=== PATIENT | male | born 1990 | race Caucasian/White ===

== ENCOUNTER 2022-09-15 19:39 | Emergency (ER) | payer OTHER, SELFPAY ==
[2022-09-15 19:47] VITALS: BP 116/80; PULSE 80; RESP 16; TEMP 36.4; O2SAT 98; BMI 21.4
--- NOTE | 2022-09-15 21:03 | CTR_ITS ---
PROCEDURE INFORMATION: Exam: CT Head Without Contrast Exam date and time: 09/15/2022 9:13 PM Age: 32 years old Clinical indication: Pain; Headache; Patient HX: [place] with fever; Additional info: Headache, chills TECHNIQUE: Imaging protocol: Computed tomography of the head without contrast. Radiation optimization: All CT scans at this facility use at least one of these dose optimization techniques: automated exposure control; mA and/or kV adjustment per patient size (includes targeted exams where dose is matched to clinical indication); or iterative reconstruction. REPORTING DATA: Count of CT and Cardiac NM exams in prior 12 months: This patient has received 0 known CTs and 0 known cardiac nuclear medicine studies in the 12 months prior to the current study. COMPARISON: No relevant prior studies available. RADIATION DOSE METRICS: Total DLP (mGy-cm): 984.48 FINDINGS: Brain: Normal. No hemorrhage. Unremarkable white matter. No mass effect. Cerebral ventricles: No ventriculomegaly. Paranasal sinuses: Visualized sinuses are unremarkable. No fluid levels. Mastoid air cells: Visualized mastoid air cells are well aerated. Bones/joints: No acute findings. Soft tissues: Unremarkable. CT/CT head wo con* [id number] IMPRESSION: No acute intracranial abnormality.
[2022-09-15 21:29] VITALS: BP 118/69; PULSE 77; RESP 16; O2SAT 98
[2022-09-15 21:33] VITALS: RESP 16
[2022-09-15] MEDS: morphine 4 mg/mL SDV 1 mL IVP (21:33)
[2022-09-15] MEDS: metoclopramide 5 mg/mL SDV 2 mL 10 MG IVP (21:33)
[2022-09-15] MEDS: ketorolac 30 mg/mL INJ IVP (21:33)
[2022-09-15] MEDS: sodium chloride 0.9% 1,000 ML 999 ML IV (21:34)
[2022-09-15 21:38] VITALS: BP 117/62; PULSE 74; RESP 16; O2SAT 99
[2022-09-15 21:40] LABS: Basophils % 0.2 %; Eosinophils # 0.1 10^3/uL (0.0-0.8); Eosinophils % 0.7 %; Hematocrit 43.6 % (42.0-52.0); Hemoglobin 15.3 g/dL (11.7-16.6); Lymphocytes # 1.8 10^3/uL (0.8-4.8); Lymphocytes % 15.4 %; Mean Corpuscular HGB Conc 35.1 g/dL (30.0-36.0); Mean Corpuscular Hemoglobin 29.2 pg (28.0-34.0); Mean Corpuscular Volume 83.2 fl (80-94); Mean Platelet Volume 9.2 fL (7.4-10.4); Monocytes # 0.7 10^3/uL (0.2-0.9); Monocytes % 6.3 %; Neutrophils # 8.89 10^3/uL (1.8-7.7); Neutrophils % 77.1 %; Nucleated Red Blood Cells % 0 %; Platelet Count 249 10^3/cmm (130-400); Red Blood Count 5.24 10^6/uL (4.1-5.3); Red Cell Distribution Width 12.1 % (12.1-15.1); White Blood Count 11.5 10^3/uL (4.0-10.0)
[2022-09-15 21:56] LABS: Alanine Aminotransferase 13 U/L (0-41); Albumin Level 4.3 g/dL (3.5-5.2); Alkaline Phosphatase 58 U/L (40-130); Blood Urea Nitrogen 12 mg/dL (6-20); Calcium 8.9 mg/dL (8.5-10.5); Carbon Dioxide 29 mmol/L (22-29); Chloride 101 mmol/L (98-107); Globulin 2.5 g/dL (1.3-4.6); Glomerular Filtration Rate 110.7 mL/min (90-130); Glucose 97 mg/dL (65-115); Osmolality Calculated 288 mOsm/kg (285-295); Sodium 139 mmol/L (136-145); Total Bilirubin 0.8 mg/dL (0.15-1.2); Total Protein 6.8 g/dL (6.6-8.7)
[2022-09-15 22:33] LABS: Anion Gap 12.9 (5-19); Aspartate Amino Transferase 22 U/L (0-40); Potassium 3.9 mmol/L (3.5-5.1)
[2022-09-15 23:12] VITALS: BP 107/62; PULSE 95; RESP 16; O2SAT 96
--- NOTE | 2022-09-16 15:53 | ED_ITS ---
HPI - Headache General: Chief Complaint: Headache Stated Complaint: sick Time Seen by Provider: 09/15/22 21:02 Source: patient and family History of Present Illness: 32 year old gentleman with a distant history of migraine. He presents with significant headache that has not responded to medication at home. He has several tick bites, although none of which have caused a significant rash. There was some concern over tick fever. He has not had fever. MD elicited complaint: headache Pertinent past history: migraines Onset (ago): hour(s) Onset description: gradually Location: frontal and temporal Severity: severe Quality & Timing: constant Exacerbating factors: light and noise Relieving factors: nothing Context: known CO exposure, tick bite and other Associated symptoms: Reports nausea; Deny chest pain, confusion, cough, eye pain, fever(s), lightheadedness, rash or vomiting Treatments prior to arrival: ibuprofen Review of Systems Const: Denies: fever(s) Eyes: Denies: change in vision, blurry vision or blind spots ENMT: Denies: throat pain Card: Denies: chest pain or lightheadedness Resp: Denies: dyspnea, productive cough or non-productive cough GI: Reports: nausea; Denies: abdominal pain or vomiting Musc: Denies: back pain Skin/Breast: Denies: rash Neuro: Reports: headache(s); Denies: weakness in extremities or confusion Physical Exam Const: COMMON NORMALS: no acute distress and patient oriented x3 GENERAL APPEARANCE: cooperative; not ill appearing and not frail appearing HENMT: COMMON NORMALS: normocephalic, atraumatic and Normal external nose present HEAD & SCALP: normocephalic and atraumatic FACE & SINUS: normal facial exam and face symmetric NOSE: Normal external nose present Eye: COMMON NORMALS: Equal, round and reactive pupils present and EOMs intact bilaterally PUPIL: Yes Equal, round and reactive pupils present Neck/C-Spine: GENERAL: Yes trachea midline Chest: CHEST: Yes Symmetrical chest wall rise Resp: COMMON NORMALS: normal respiratory effort, No retractions, No use of accessory muscles and clear to auscultation bilaterally AUSCULTATION: clear to auscultation bilaterally Cardio: COMMON NORMALS: regular rate and regular rhythm RATE: regular rate RHYTHM: regular rhythm GI: COMMON NORMALS: Normal to inspection, nondistended, normoactive bowel sounds present Extremity: COMMON NORMALS: no pedal edema Neuro: ALLAN COMA SCALE: document GCS findings [place] coma scale eye opening: Spontaneous [place] coma scale verbal response: Orientated Allan coma scale motor response: Obey commands Allan coma scale total score: 15 COMMON NORMALS: patient oriented x3 CRANIAL NERVES: Yes CN normal except as noted SPEECH: speech normal SENSORY EXAM: Yes extremities (intact) MOTOR EXAM: Normal motor muscle tone present throughout Psych: COMMON NORMALS: speech normal SPEECH: Yes normal speech Skin: COMMON NORMALS: no rashes or lesions noted GENERAL SKIN EXAM: no rashes or lesions noted Course Vital Signs: Vital signs: Vital Signs Temperature 97.5 F L 09/15/22 19:47 Pulse Rate 95 09/15/22 23:12 Respiratory Rate 16 09/15/22 23:12 Blood Pressure 107/62 09/15/22 23:12 Pulse Oximetry 96 09/15/22 23:12 Oxygen Delivery Me thod Nasal Cannula 09/15/22 21:29 MDM - Headache Medical Decision Making Responded well to oxygen, medication and fluid in the ER. White blood cell count is 11.5 without left shift. His CRP is three. Laboratory otherwise not remarkable. Head CT is non acute. No evidence of tick fever. More likely cluster headache versus migraine. With improvement, he'll be allowed home. Lab Data 09/15/22 21:34 09/15/22 21:[address] 09/15/22 21:03 IMPRESSION: No acute intracranial abnormality. Laboratory Results WBC 11.5 10^3/uL (4.0-10.0) H 09/15/22 21:34 RBC 5.24 10^6/uL (4.1-5.3) 09/15/22 21:34 Hgb 15.3 g/dL (11.7-16.6) 09/15/22 21:34 Hct 43.6 % (42.0-52.0) 09/15/22 21:34 MCV 83.2 fl (80-94) 09/15/22 21:34 MCH 29.2 pg (28.0-34.0) 09/15/22 21:34 MCHC 35.1 g/dL (30.0-36.0) 09/15/22 21:34 RDW 12.1 % (12.1-15.1) 09/15/22 21:34 Plt Count 249 10^3/cmm (130-400) 09/15/22 21:34 MPV 9.2 fL (7.4-10.4) 09/15/22 21:34 Neut % (Auto) 77.1 % 09/15/22 21:34 Lymph % (Auto) 15.4 % 09/15/22 21:34 Simpson % (Auto) 6.3 % 09/15/22 21:34 Eos % (Auto) 0.7 % 09/15/22 21:34 Baso % (Auto) 0.2 % 09/15/22 21:34 Neut # (Auto) 8.89 10^3/uL (1.8-7.7) H 09/15/22 21:34 Lymph # (Auto) 1.8 10^3/uL (0.8-4.8) 09/15/22:34 Simpson # (Auto) 0.7 10^3/uL (0.2-0.9) 09/15/22 21:34 Eos # (Auto) 0.1 10^3/uL (0.0-0.8) 09/15/22 21:34 Baso # (Auto) 0.0 10^3/uL (0.0-0.1) 09/15/22:34 Nucleated RBC % (auto) 0 % 09/15/22: Nucleated RBCs # 0.0 /100WBC 09/15/22 21:34 Sodium 139 mmol/L (136-145) 09/15/22 21:34 Potassium 3.9 mmol/L (3.5-5.1) 09/15/22 21:34 Chloride 101 mmol/L (98-107) 09/15/22 21:34 Carbon Dioxide 29 mmol/L (22-29) 09/15/22 21:34 Anion Gap 12.9 (5-19) 09/15/22 21:34 BUN 12 mg/dL (6-20) 09/15/22 21:34 Creatinine 0.8 mg/dL (0.7-1.2) 09/15/22 21:34 GFR Calculation 110.7 mL/min (90-130) 09/15/22 21:34 Glucose 97 mg/dL (65-115) 09/15/22 21:34 Calculated Osmolality 288 mOsm/kg (285-295) 09/15/22 21:34 Calcium 8.9 mg/dL (8.5-10.5) 09/15/22 21:34 Total Bilirubin 0.8 mg/dL (0.15-1.2) 09/15/22 21:34 AST 22 U/L (0-40) 09/15/22 21:34 ALT 13 U/L (0-41) 09/15/22 21:34 Alkaline Phosphatase 58 U/L (40-130) 09/15/22 21:34 C-Reactive Protein 3.0 mg/L (0.0-4.9) 09/15/22 21:34 Total Protein 6.8 g/dL (6.6-8.7) 09/15/22 21:34 Albumin 4.3 g/dL (3.5-5.2) 09/15/22 21:34 Globulin 2.5 g/dL (1.3-4.6) 09/15/22 21:34 Discharge Plan Discharge Patient Disposition: Home Clinical Impression: Headache Condition: Stable Discharge Orders: Discharge ED (Routine); Ordered 09/15/22 Ordered By: Aguila Baltazar Patient Instructions: General Headache (ED) Activity Restrictions/Additional Instructions: Return for fever, worsening mental status, vomiting, other concerning symptoms. Coding Level of Care Code ED [facility] for [place]
== END 2022-09-15 23:15 | disposition home or self-care (01) ==
PROVIDERS: Emergency Provider Emergency Medicine
DX: R51.9 Headache, unspecified (principal)
CPT/HCPCS: 70450; 80053; 85025; 86140; 96374; 96375; 99285; J1885; J2270; J2765; J7030